=== PATIENT | female | born 1990 | race Caucasian/White ===

== ENCOUNTER 2019-03-05 10:00 | Outpatient (CLI) | payer BC ==
[~2019-03-05 10:00] MED LIST: BCP; IBUP-814 PO; IBUPROFE; LEVO25TA50 PO; ONDA8TAB9 PO; PER10325T PO; VAL5T PO; ZOF4T PO
[2019-03-05 11:11] LABS: BASOPHILS % (AUTO) 0.6 % (0-1); EOSINOPHILS # (AUTO) 0.2 X10'3 (0-0.9); EOSINOPHILS % (AUTO) 3.1 % (0-6); HEMATOCRIT 39.8 % (35.0-45.0); HEMOGLOBIN 13.7 g/dl (12.0-16.0); LYMPHOCYTES # (AUTO) 1.6 X10'3 (1.1-4.8); LYMPHOCYTES % (AUTO) 26.4 % (21-51); MEAN CORPUSCULAR HEMOGLOBIN 29.6 PG (27.0-31.0); MEAN CORPUSCULAR HGB CONC 34.5 g/dL (33.0-36.5); MEAN CORPUSCULAR VOLUME 85.7 FL (78-98); MEAN PLATELET VOLUME 9.3 FL (7.4-10.4); MONOCYTES # (AUTO) 0.4 X10'3 (0-0.9); NEUTROPHILS # (AUTO) 3.8 X10'3 (1.8-7.7); NEUTROPHILS % (AUTO) 63.9 % (42-75); PLATELET COUNT 204 X10'3 (140-440); RED BLOOD COUNT 4.64 X10'6 (4.20-5.60); RED CELL DISTRIBUTION WIDTH 13.5 % (11.5-14.5)
[2019-03-05 11:24] LABS: ALANINE AMINOTRANSFERASE 17 U/L (12-78); ALBUMIN 4.2 G/DL (3.4-5.0); ALBUMIN/GLOBULIN RATIO 1.1 (1.1-1.5); ALKALINE PHOSPHATASE 69 IU/L (46-116); ANION GAP 8 (8-16); ASPARTATE AMINO TRANSFERASE 11 U/L (10-37); BILIRUBIN,TOTAL 0.3 MG/DL (0.1-1.0); BLOOD UREA NITROGEN 14 MG/DL (7-18); BUN/CREATININE RATIO 15.4 (6.6-38.0); C-REACTIVE PROTEIN 1.16 MG/DL (0.0-0.5); CALCIUM 9.8 MG/DL (8.5-10.1); CHLORIDE 100 MMOL/L (99-107); CREATININE 0.91 MG/DL (0.40-0.90); GLUCOSE 90 MG/DL (70-104); POTASSIUM 4.1 MMOL/L (3.5-5.1); SODIUM 134 MMOL/L (135-145); TOTAL CARBON DIOXIDE 25.7 MMOL/L (24-32); TOTAL PROTEIN 7.9 G/DL (6.4-8.2); eGFR 72 ML/MIN
== END 2019-03-05 23:59 | disposition home or self-care (01) ==
LOC: LAB 10:00
DX: L02.416 Cutaneous abscess of left lower limb (principal); R11.0 Nausea
CPT/HCPCS: 36415; 80053; 85025; 86140; 87040

== ENCOUNTER 2020-08-13 11:34 | Emergency (ER) | payer BC ==
[~2020-08-13] VITALS: Ht 190.5 cm; Wt 102.3 kg
[2020-08-13] MEDS ORDERED: ipratropium/albuterol 3ml nebule NEB ONE (13:05)
[2020-08-13] MEDS ORDERED: acetaminophen 325mg tablet PO ONE (13:10)
[2020-08-13] MEDS ORDERED: ondansetron 4mg rapidly disintigrating tab PO ONE (13:50)
[2020-08-13] MEDS ORDERED: ONDA4TAB12 PO (13:52)
[2020-08-13 14:12] LABS: BASOPHILS % (AUTO) 0.2 % (0-1); EOSINOPHILS % (AUTO) 0.4 % (0-6); HEMOGLOBIN 14.1 g/dl (12.0-16.0); LYMPHOCYTES # (AUTO) 1.7 X10'3 (1.1-4.8); LYMPHOCYTES % (AUTO) 18.4 % (21-51); MEAN CORPUSCULAR HEMOGLOBIN 30.4 PG (27.0-31.0); MEAN CORPUSCULAR HGB CONC 34.3 g/dL (33.0-36.5); MEAN CORPUSCULAR VOLUME 88.6 FL (78-98); MEAN PLATELET VOLUME 9.2 FL (7.4-10.4); MONOCYTES # (AUTO) 0.6 X10'3 (0-0.9); MONOCYTES % (AUTO) 5.9 % (2-12); NEUTROPHILS % (AUTO) 75.1 % (42-75); PLATELET COUNT 129 X10'3 (140-440); RED BLOOD COUNT 4.63 X10'6 (4.20-5.60); RED CELL DISTRIBUTION WIDTH 12.8 % (11.5-14.5); WHITE BLOOD COUNT 9.3 X10'3 (4.5-11.0)
[2020-08-13] MEDS ORDERED: ALB0.5UD IH (14:17)
[2020-08-13 14:35] LABS: ALANINE AMINOTRANSFERASE 35 U/L (12-78); ALBUMIN 3.7 G/DL (3.4-5.0); ALKALINE PHOSPHATASE 59 IU/L (46-116); ANION GAP 11 (8-16); ASPARTATE AMINO TRANSFERASE 17 U/L (10-37); BILIRUBIN,TOTAL 0.4 MG/DL (0.1-1.0); BLOOD UREA NITROGEN 15 MG/DL (7-18); BUN/CREATININE RATIO 15.6 (6.6-38.0); CALCIUM 8.7 MG/DL (8.5-10.1); CHLORIDE 105 MMOL/L (99-107); CREATININE 0.96 MG/DL (0.40-0.90); GLUCOSE 100 MG/DL (70-104); POTASSIUM 3.2 MMOL/L (3.5-5.1); SODIUM 141 MMOL/L (135-145); TOTAL CARBON DIOXIDE 25.4 MMOL/L (24-32); TOTAL PROTEIN 7.4 G/DL (6.4-8.2); eGFR 67 ML/MIN
[2020-08-13 15:40] LABS: URINE HCG NEGATIVE (NEG)
[2020-08-13] MEDS ORDERED: iohexol 350MG/ML 100ml bottle IV ONE (16:04)
[2020-08-13] MEDS ORDERED: DOXY150T5 PO (17:29)
[2020-08-13 17:42] VITALS: BP 127/83
== END 2020-08-13 17:46 | disposition home or self-care (01) ==
LOC: ER 11:34
DX: J45.901 Unspecified asthma with (acute) exacerbation (principal); E07.9 Disorder of thyroid, unspecified; Z88.0 Allergy status to penicillin; Z88.8 Allergy status to other drugs, medicaments and biological substances; Z79.899 Other long term (current) drug therapy; Z20.828 Contact with and (suspected) exposure to other viral communicable diseases
CPT/HCPCS: 36415; 71045; 71275; 80053; 81025; 85025; 85379; 87635; 94640; 99285; Q9967; 94760

== ENCOUNTER 2022-11-17 09:25 | Day surgery (SDC) | payer BC ==
[~2022-11-17] VITALS: Ht 190.5 cm; Wt 88.5 kg
[2022-11-17] VITALS (7 sets, daily range): BP systolic 107–129; BP diastolic 66–80
[~2022-11-17 09:25] MED LIST changes: +DIAZ5TAB22 PO; +ONDA4TAB12 PO; -VAL5T PO
[2022-11-17] MEDS ORDERED: acetaminophen 325mg tablet PO PRN (10:30)
[2022-11-17] MEDS ORDERED: ESCI20TA39 PO (10:33)
[2022-11-17] MEDS ORDERED: NORT25CA PO (10:33)
[2022-11-17] MEDS ORDERED: AMPH20TA3 PO (10:33)
[2022-11-17] MEDS ORDERED: PREG75CA75 PO (10:33)
[2022-11-17] MEDS ORDERED: GABA300C (10:33)
[2022-11-17] MEDS ORDERED: DIAZ2TAB3 PO (10:33)
[2022-11-17] MEDS ORDERED: HYDR-3972 PO (10:33)
[2022-11-17] MEDS ORDERED: BREX0.5T PO (10:33)
[2022-11-17] MEDS ORDERED: DOXY100C76 PO (10:33)
[2022-11-17] MEDS ORDERED: MONT10TA21 PO (10:35)
[2022-11-17 13:38] LABS: APPEARANCE,CSF CLEAR; CSF SUPERNATANT COLOR COLORLESS
[2022-11-17 13:39] LABS: APPEARANCE,CSF CLEAR; CSF RBC 2 /CU MM (0); CSF SUPERNATANT COLOR COLORLESS; CSF VOLUME 22 ML; CSF WBC CT 0 /CU MM (0-5); TUBE# COUNTED 1; TUBE# COUNTED 4
[2022-11-17 13:40] LABS: CSF RBC 2 /CU MM (0); CSF WBC CT 0 /CU MM (0-5)
[2022-11-18 08:48] LABS: GLUCOSE,CSF 62 MG/DL (40-75); TOTAL PROTEIN,CSF 43 MG/DL (15-45)
[2022-11-20 13:52] LABS: IMMUNOGLOBULIN G, QN CSF 3.6 mg/dL (0.0-6.7)
== END 2022-11-17 13:15 | disposition home or self-care (01) ==
LOC: SSTAY O 09:25
PROVIDERS: ATTEND Psychiatry & Neurology Neurology
DX: R20.2 Paresthesia of skin (principal); R42 Dizziness and giddiness; J45.909 Unspecified asthma, uncomplicated; F32.A Depression, unspecified; G47.30 Sleep apnea, unspecified; M48.8X6 Other specified spondylopathies, lumbar region; E06.3 Autoimmune thyroiditis; Z87.01 Personal history of pneumonia (recurrent); Z90.710 Acquired absence of both cervix and uterus; Z98.890 Other specified postprocedural states; Z88.0 Allergy status to penicillin; Z88.8 Allergy status to other drugs, medicaments and biological substances; Z79.899 Other long term (current) drug therapy
CPT/HCPCS: 36415; 62328; 82040; 82042; 82164; 82784; 83873; 83916; 86617; 89051; A4620

== ENCOUNTER 2022-11-22 09:09 | Emergency (ER) | payer BC ==
[~2022-11-22] VITALS: Ht 190.5 cm; Wt 86.8 kg
[~2022-11-22 09:09] MED LIST changes: +AMPH20TA3 PO; -BCP; +BREX0.5T PO; +DIAZ2TAB3 PO; -DIAZ5TAB22 PO; +DOXY100C76 PO; +ESCI20TA39 PO; +GABA300C; +HYDR-3972 PO; -IBUP-814 PO; -IBUPROFE; +MONT-47 PO; +NORT25CA PO; -ONDA4TAB12 PO; -ONDA8TAB9 PO; -PER10325T PO; +PREG75CA75 PO; -ZOF4T PO
[2022-11-22] MEDS ORDERED: normal saline 1000ML IV soln IVB ONE (10:10)
[2022-11-22] MEDS ORDERED: ondansetron/PF 4mg/2ml inj IV ONE (10:10)
[2022-11-22 10:55] VITALS: BP 137/96
--- NOTE | 2022-11-22 14:14 | NUR ---
RECEIVED REPORT FROM RECOVERY PT STABLE POST CONSCIOUS SEDATION AND BLOOD PATCH.
--- NOTE | 2022-11-22 14:28 | NUR ---
PATIENT BLOOD PATCH PROCEDURE COMPLETED AND V/S STABLE AND RETURNED BACK TO ER FOR D/C. SPINE SITE OF PROCEDURE CLEAR NO EDEMA REDNESS OR DRAINAGE CLEAN AND DRY WITH SMALL BAND AID INTACT. IT HAS BEEN OVER 30MIN POST PROCEDURE OF REMAINING SUPINE AND FLAT AND HAS BEEN CLEARED BY DR MCCALLUM TO GET UP AND WALK AND BE D/C WHEN ER IS READY. B/P 129/78 HR 78 TEMP 36.8 RR 15 SATS 99% ON RA POST PROCEDURE . PATIENT A&OX4, DENIES PAIN OR NEEDS, CSM INTACT WNL, REPORT GIVEN TO LÓPEZ GRAYSON WHO HAS TAKEN OVER PATIENT CARE. PATIENT IN ER BED 8 NOW.
== END 2022-11-22 14:50 | disposition admitted as inpatient to this hospital (09) ==
LOC: ER 09:09
DX: G97.0 Cerebrospinal fluid leak from spinal puncture (principal); R51.9 Headache, unspecified; R11.2 Nausea with vomiting, unspecified; Z86.14 Personal history of Methicillin resistant Staphylococcus aureus infection; Z72.89 Other problems related to lifestyle; Z88.0 Allergy status to penicillin; Z79.899 Other long term (current) drug therapy; Y84.4 Aspiration of fluid as the cause of abnormal reaction of the patient, or of later complication, without mention of misadventure at the time of the procedure
CPT/HCPCS: 96374; 99285; J2405; J7030; 99284; A4615; A6449

== ENCOUNTER 2024-10-23 20:03 | Emergency (ER) | payer BC ==
[~2024-10-23] VITALS: Ht 190.5 cm; Wt 89.7 kg
[~2024-10-23 20:03] MED LIST changes: +DOXY-462 PO; -DOXY100C76 PO; -PREG75CA75 PO; +PREG75CA76 PO
[2024-10-23 20:21] VITALS: BP 163/100; PULSE 93; RESP 17; O2SAT 98
[2024-10-23 21:25] VITALS: TEMP 96.8
== END 2024-10-23 21:26 | disposition left against medical advice (07) ==
LOC: ER 20:04
DX: T14.8XXA Other injury of unspecified body region, initial encounter (principal); Z88.0 Allergy status to penicillin; Z88.8 Allergy status to other drugs, medicaments and biological substances; W55.01XA Bitten by cat, initial encounter; Y93.89 Activity, other specified; Y92.89 Other specified places as the place of occurrence of the external cause; Y99.8 Other external cause status; Z53.21 Procedure and treatment not carried out due to patient leaving prior to being seen by health care provider

== ENCOUNTER 2024-10-24 11:18 | Emergency (ER) | payer BC, OTHER ==
[~2024-10-24] VITALS: Ht 188 cm; Wt 89.6 kg
[2024-10-24 11:31] VITALS: BP 149/96; PULSE 88; RESP 16; TEMP 98.5; O2SAT 99
== END 2024-10-24 14:35 | disposition left against medical advice (07) ==
LOC: ER 11:19
DX: Z23 Encounter for immunization (principal); Z53.21 Procedure and treatment not carried out due to patient leaving prior to being seen by health care provider

== ENCOUNTER 2024-10-25 09:50 | Emergency (ER) | payer OTHER ==
[~2024-10-25] VITALS: Ht 188 cm; Wt 90.3 kg
[2024-10-25] MEDS: rabies vaccine (PCEC)/PF 2.5 unit kit IMVAC ONE (10:49)
[2024-10-25] MEDS: rabies immune globulin/PF 150 unit/ml inj IMVAC STA (10:50)
[2024-10-25 11:25] VITALS: BP 148/89; PULSE 86; RESP 16; TEMP 97.9; O2SAT 98
== END 2024-10-25 11:29 | disposition home or self-care (01) ==
LOC: ER 09:50
DX: S61.431A Puncture wound without foreign body of right hand, initial encounter (principal); S61.432A Puncture wound without foreign body of left hand, initial encounter; Z23 Encounter for immunization; Z20.3 Contact with and (suspected) exposure to rabies; Z29.14 Encounter for prophylactic rabies immune globulin; Z88.0 Allergy status to penicillin; W55.01XA Bitten by cat, initial encounter; Y93.89 Activity, other specified; Y92.89 Other specified places as the place of occurrence of the external cause; Y99.8 Other external cause status
CPT/HCPCS: 90376; 90471; 90675; 96372; 99284

== ENCOUNTER 2024-10-28 10:12 | Emergency (ER) | payer OTHER ==
[~2024-10-28] VITALS: Ht 190.5 cm; Wt 110.0 kg
[2024-10-28 10:14] VITALS: BP 150/102; PULSE 87; RESP 16; TEMP 98.3; O2SAT 99
[2024-10-28] MEDS ORDERED: ONDA-243 PO (10:48)
[2024-10-28] MEDS: ondansetron 4mg rapidly disintigrating tab PO ONE (11:02)
[2024-10-28] MEDS: rabies vaccine (PCEC)/PF 2.5 unit kit IMVAC ONE (11:02)
== END 2024-10-28 11:03 | disposition home or self-care (01) ==
LOC: ER 10:13
DX: Z29.14 Encounter for prophylactic rabies immune globulin (principal); Z20.3 Contact with and (suspected) exposure to rabies; R11.2 Nausea with vomiting, unspecified; R19.7 Diarrhea, unspecified; Z88.0 Allergy status to penicillin; Z88.8 Allergy status to other drugs, medicaments and biological substances; W55.01XA Bitten by cat, initial encounter; Y93.89 Activity, other specified; Y92.89 Other specified places as the place of occurrence of the external cause; Y99.8 Other external cause status
CPT/HCPCS: 90471; 90675; 99283